=== PATIENT | male | born 1935 | race Caucasian/White ===

== ENCOUNTER 2021-12-19 12:19 | Emergency (ER) | payer MEDICARE, BC ==
[~2021-12-19] VITALS: Ht 182.9 cm; Wt 77.3 kg
[2021-12-19 12:34] VITALS: TEMP 97.8
[2021-12-19 12:55] LABS: BASO # 0.1 K/mm3 (0.0-0.2); BASO % 1.3 % (0.0-2.0); EOS # 0.2 K/mm3 (0.0-0.7); EOS % 3.6 % (0.0-4.0); GRAN # 3.4 K/mm3 (1.4-6.5); GRAN % 64.2 % (42.2-75.2); HEMATOCRIT 33.1 % (42.0-52.0); LYMPH # 0.9 K/mm3 (1.2-3.4); MEAN CELL VOLUME 92 fl (80.0-100.0); MEAN CORPUSCULAR HEMOGLOBIN 31 pg (27-31); MEAN CORPUSCULAR HGB CONC 33 g/dl (33.0-37.0); MEAN PLATELET VOLUME 10.3 fl (7.4-10.4); MONO # 0.7 K/mm3 (0.1-0.6); MONO % 13.5 % (1.7-9.3); PLATELET COUNT 273 K/mm3 (130-400); RED BLOOD COUNT 3.61 M/mm3 (4.20-5.60); REDCELL DISTRIBUTION WIDTH-CV 12.8 % (11.5-14.5)
[2021-12-19 13:21] LABS: ALBUMIN 4.3 gm/dL (3.4-4.8); BILIRUBIN,TOTAL 0.3 mg/dL (0.2-1.2); CALCIUM 9.1 mg/dL (8.4-10.2); CREATININE, serum 1.8 mg/dL (0.72-1.25); POTASSIUM 3.6 mmol/L (3.5-4.5); TOTAL PROTEIN 7.4 gm/dL (6.2-8.1)
[2021-12-19 14:02] VITALS: BP 132/71; PULSE 75
== END 2021-12-19 14:02 | disposition home or self-care (01) ==
LOC: COL.ER 12:19
PROVIDERS: Physician Assistant
DX: K40.90 Unilateral inguinal hernia, without obstruction or gangrene, not specified as recurrent (principal)

== ENCOUNTER 2022-01-10 07:51 | Day surgery (SDC) | payer MEDICARE, BC ==
[~2022-01-10] VITALS: Ht 182.9 cm; Wt 73.0 kg
[2022-01-10] VITALS (9 sets, daily range): BP systolic 107–134; BP diastolic 37–63; PULSE 71–79; TEMP 97.4–98.1
[2022-01-10] MEDS ORDERED: HCTZ 25MG TAB25 MG PO (09:30)
[2022-01-10] MEDS ORDERED: PLAVIX 75MG TAB75 MG PO (09:31)
[2022-01-10] MEDS ORDERED: NORVASC 5MG5 MG/TAB PO (09:31)
[2022-01-10] MEDS ORDERED: PAXIL 10MG10 MG PO (09:32)
[2022-01-10] MEDS ORDERED: LIPITOR20 MG PO (09:32)
[2022-01-10] MEDS ORDERED: NORCO 325 MG-51 TAB PO (10:30)
--- NOTE | 2022-01-10 12:55 | NUR ---
PT TO BAY 7 PER CART FROM PACU. RECEIVED REPORT. PT C/O OF NAUSEA AND DIZZINESS. PT C/O NECK PAIN. ICE APPLIED. PT REQUESTING WASHCLOTH FOR EYES. VS OBTAINED. CALL LIGHT WITHIN REACH. PT VERBALIZED UNDERSTANDING. LIGHTS DIMMED. PT WANTING TO REST. PT DENIES ANY OTHER NEEDS AT THIS TIME. WILL CONTINUE TO MONITOR.
--- NOTE | 2022-01-10 13:10 | NUR ---
PT CONTINUES TO REST. DENIES ANY NEEDS.
--- NOTE | 2022-01-10 13:25 | NUR ---
PT VOMITED SMALL AMOUNT OF MUCOUS. WILL CONTINUE TO MONITOR. PT DENIES ANY ADDITIONAL NEEDS. PT WANTS TO CONTINUE TO REST.
--- NOTE | 2022-01-10 13:55 | NUR ---
PT CONTINUES TO SLEEP. RESTING WITH ICE ON NECK AND EYES COVERED.
--- NOTE | 2022-01-10 15:00 | NUR ---
PT CONTINUES TO STATE HE IS FEELING DIZZY. CONTINUES TO REST. WILL CONTINUE TO MONITOR PT.
--- NOTE | 2022-01-10 15:55 | NUR ---
PT CONTINUES TO C/O OF DIZZINESS. WILL CONTACT [employer] FOR AN ORDER.
--- NOTE | 2022-01-10 16:15 | NUR ---
RECEIVED ORDER FOR MECLAZINE 25 MG.
--- NOTE | 2022-01-10 16:30 | NUR ---
PT CONTINUES TO C/O NAUSEA AND DIZZINESS. PT STATES HE IS WANTING TO BE DISCHARGED. HIS PREFERENCE WOULD BE TO REST AT HOME. PT HAD SEVERAL BOUTS OF DRY HEAVING.
--- NOTE | 2022-01-10 16:45 | NUR ---
DISCHARGE EDUCATION COMPLETED WITH PT AND HIS . VERBALIZED UNDERSTANDING OF HOME AND FOLLOW UP CARE. ALL QUESTIONS ANSWERED. DISCHARGE PAPERWORK GIVEN TO PT'S .
--- NOTE | 2022-01-10 16:55 | NUR ---
IV DC'D. PT TOLERATED WELL.
--- NOTE | 2022-01-10 17:10 | NUR ---
PT CONTINUES TO C/O NAUSEA AND DIZZINESS. CONTINUES TO REQUEST TO BE DISCHARGED. EDUCATED PT'S THE IMPORTANCE OF PT VOIDING AND STAYING HYDRATED. SHE VERBALIZED UNDERSTANDING.
--- NOTE | 2022-01-10 17:15 | NUR ---
PT OFF UNIT PER WHEELCHAIR. PT DISCHARGE TO HOME WITH PER PERSONAL VEHICLE.
== END 2022-01-10 16:15 | disposition home or self-care (01) ==
LOC: SDCO 07:51
DX: K40.90 Unilateral inguinal hernia, without obstruction or gangrene, not specified as recurrent (principal); Z87.891 Personal history of nicotine dependence
CPT/HCPCS: C1781; J0690; J1100; J2405; J2704; J3010; J7120